=== PATIENT | female | born 2000 | race African-American/Black ===

== ENCOUNTER 2019-09-25 06:19 | Emergency (ER) | payer OTHER ==
[~2019-09-25] VITALS: Ht 165.1 cm; Wt 77.1 kg
[2019-09-25 06:53] LABS: URINE BILIRUBIN NEGATIVE (Negative); URINE BLOOD 3+ (Negative); URINE CLARITY CLEAR; URINE COLOR YELLOW; URINE GLUCOSE-RANDOM NEGATIVE (Negative); URINE KETONES NEGATIVE (Negative); URINE NITRITE-REFLEX NEGATIVE (Negative); URINE PROTEIN 2+ (Negative); URINE UROBILINOGEN 0.2 E.U./dl (0.2-1.0)
[2019-09-25 06:56] LABS: URINE LEUKOCYTES-REFLEX 2+ (Negative)
[2019-09-25] MEDS ORDERED: CIPRO250 M1 PO (07:09)
[2019-09-25] MEDS ORDERED: PYRIDIUM200 M2 PO (07:09)
[2019-09-25 07:10] LABS: CASTS None Seen /LPF (None Seen); CRYSTALS None Seen /LPF (None Seen); MUCUS None Seen strn/LPF (None Seen); SQUAMOUS 0-3 Few /LPF (0-3); URINE RBC >20 Many /HPF (0-2)
[2019-09-25 07:19] VITALS: BP 138/82
== END 2019-09-25 07:19 | disposition home or self-care (01) ==
LOC: M.ERS 06:19
PROVIDERS: Personal Emergency Response Attendant
DX: N39.0 Urinary tract infection, site not specified (principal)